=== PATIENT | female | born 1945 | race Two or more races ===

== ENCOUNTER 2025-04-29 10:41 | Emergency (ER) | payer OTHER ==
[~2025-04-29] VITALS: Ht 144.8 cm; Wt 60.3 kg
[2025-04-29 11:35] VITALS: BP 133/85; O2SAT 98
[2025-04-29] MEDS ORDERED: ZETIA10 MG PO (11:36)
[2025-04-29] MEDS ORDERED: SIMVASTATIN5 MG PO (11:36)
[2025-04-29] MEDS ORDERED: KETOROLAC TROMETHAMINE 60 MG VIAL IM ONE ×2 (11:59→12:00)
[2025-04-29] MEDS ORDERED: BENZONATATE 200 MG CAPSULE PO ONE (12:00)
[2025-04-29 12:55] LABS: BASO % 0.4 % (0.1-1.2); EOS # 0.36 (0.04-0.54); EOS % 3.2 % (0.7-7.0); LYMPH # 3.30 (1.18-3.74); LYMPH % 29.0 % (19.3-53.1); MEAN PLATELET VOLUME 9.70 fl (9.4-12.4); MONO # 1.20 (0.24-0.82); MONO % 10.5 % (4.7-12.5); NEUT # 6.46 (1.56-6.13); NEUT % 56.6 % (34.0-71.1); RED CELL DISTRIBUTION WIDTH 12.8 % (11.6-14.4)
[2025-04-29 13:06] LABS: COVID-19 AG NEGATIVE (NEGATIVE)
[2025-04-29] MEDS ORDERED: AZITHROMYCIN500 MG PO (14:11)
[2025-04-29] MEDS ORDERED: BENZONATATE200 M1 PO (14:11)
[2025-04-29] MEDS ORDERED: LEVALBUTER0.63 MG/3 IH (14:11)
[2025-04-29] MEDS ORDERED: PEPCID AC20 MG PO (14:11)
== END 2025-04-29 14:56 | disposition home or self-care (01) ==
LOC: ER 10:41
PROVIDERS: General Practice
DX: R05.8 Other specified cough (principal); J00 Acute nasopharyngitis [common cold]; Z20.822 Contact with and (suspected) exposure to COVID-19